=== PATIENT | male | born 1970 | race Hispanic/Latino ===

== ENCOUNTER 2025-02-06 22:00 | Emergency (ER) | payer BC ==
[~2025-02-06] VITALS: Ht 167.6 cm; Wt 85.3 kg
--- NOTE | 2025-02-06 22:22 | NUR ---
PT CARE ASSUMED AT THIS TIME
--- NOTE | 2025-02-06 22:35 | ERN ---
General Chief Complaint: Palpitations Stated Complaint: PALPITATIONS Time Seen by MD: 22:03 History of Present Illness Initial Comments 54-year-old male with a past medical history of hypertension who was out last night until 8:00 a.m. this morning and then tonight when he laid down he felt some palpitations in his heart and comes in as he is concerned about a cardiac problem. He also states that everybody in his family has an anxiety disorder except for him. Currently he is asymptomatic and feels fine. He thinks it is because he is at a hospital and knows that he will be okay. Allergies: Coded Allergies: No Known Allergies (Unverified Allergy, Unknown, 02/06/25) Past Medical History Past Medical History: Hypertension Past Surgical History: None ROS Dictation Review of systems is negative. No chest pain no shortness of breath no changes in defecation or urination no abdominal pain no muscles are aches no headaches no visual changes Physical Exam General Appearance: (+) mild distress Orientation: (+) alert, (+) oriented x 3 Head/Face Trauma: No Eye: bilateral eye normal inspection, bilateral eye PERRL, bilateral eye EOMI Ear, Nose, Throat: (+) hearing grossly normal, (+) normal ENT inspection, (+) moist mucous membraine Neck: (+) normal inspection, (+) supple, (+) full range of motion, (+) no JVD Respiratory: (+) chest non-tender, (+) lungs clear, (+) well ventilated Heart: (+) regular, (+) no gallop Vascular: (+) no edema, (+) normal peripheral pulse Gastrointestinal: (+) soft, (+) bowel sound present MDM The patient right now feels fine. His anxiety is gone. His chest palpitations are gone. An EKG shows a normal sinus rhythm at 56. With an early repolarization pattern and possible bull minimal ST elevations in two and three. I asked the patient if he would like to go home and he says yes. He feels fine now he relates it to possibly being in the hospital and knowing that he will be okay. His blood pressure is slightly elevated I recommend he follow-up with his primary care physician. ED Course Vital Signs Date Time Temp Pulse Resp B/P (MAP) Pulse Ox O2 Delivery O2 Flow Rate FiO2 02/06/25 22:01 98.8 63 18 153/96 100 Room Air DX & DISP Disposition: Discharge Departure Impression: Primary Impression: Palpitations Condition: Stable Additional Instructions: Your heart palpitations have resolved spontaneously our EKG here shows a regular rate and rhythm. Her vital signs do show a slight elevation in her blood pressure. I think it is safe for you to go home and follow-up with her primary care physician. The cause of the transient palpitations I guess were hypovolemia possible electrolyte disorders. You were up all night last night and slightly behind on sleep. You stated you feel comfortable going home and I agree with you. Please follow-up with your primary care physician as your blood pressure is 150. Feel free to return if the palpitations come back and do not resolve. REJI URANO MD Feb 06, 2025 22:35
[2025-02-06 22:42] VITALS: BP 129/90; PULSE 56; RESP 15; TEMP 98.3; O2SAT 100
--- NOTE | 2025-02-07 06:32 | EKG ---
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
== END 2025-02-06 22:46 | disposition home or self-care (01) ==
LOC: EDH 22:00
DX: R00.2 Palpitations (principal); F41.9 Anxiety disorder, unspecified; I10 Essential (primary) hypertension
CPT/HCPCS: 93005; 99284

== ENCOUNTER 2025-02-23 23:32 | Emergency (ER) | payer BC ==
[~2025-02-23] VITALS: Ht 167.6 cm; Wt 88.0 kg
--- NOTE | 2025-02-24 00:31 | ERN ---
ED Note History of Present Illness Stated Complaint: C/O HIGH B/P Chief Complaint: Hypertension Time Seen by MD: 23:37 Dictation: This is a 55-year-old male who presented to the emergency room complaining of increased blood pressure this evening. Apparently when he checked his blood pressure it was 150/90 and he got really concerned and panicky and came to the ER for further evaluation he stated that he can feel when the blood pressure is going up he gets very anxious. No chest pain pressure PND orthopnea no headache blurred vision diplopia. He stated that he has been since last year and has been dating new women in the new relationships are really making him very anxious. Initially he tried to drive around thinking that the anxiety would go down however as he sat in the parking lot he just felt it was better to come and get himself checked out Temperature 98.1 pulse 65 respirations 20 blood pressure 146/94 with a pulse oximetry of 100% on room air Allergies: Coded Allergies: No Known Allergies (Unverified Allergy, Unknown, 02/06/25) Past Medical History Past Medical History: Hypertension Surgical History: None PSYCH History: anxiety Family History: Negative Social History: Negative RN Note Reviewed/Agreed w/PFSH: Yes Review of System Dictation Constitutional: Negative for fever,chills, and weight loss Eyes: Negative for injury, pain,redness, and discharge ENT: Negative for injury,pain or swelling Cardiovascular: Negative for chest pain, palpitations, and edema positive for increasing blood pressure Respiratory: Negative for shortness of breath, cough, and wheezing, Abdomen/GI: Negative for abdominal pain, nausea, vomiting, diarrhea, and constipation Back: Negative for injury and pain : Negative for injury, bleeding and discharge MS/Extremity: Negative for injury and deformity Skin: Negative for rash, and discoloration Neuro: Negative for headache, weakness, numbness, tingling, and seizure Psych: Negative for suicide ideation, homicidal ideation, and hallucinations positive for increasing anxiety symptoms Initial Vital Sign VS Vital Signs Date Time Temp Pulse Resp B/P (MAP) Pulse Ox O2 Delivery O2 Flow Rate FiO2 02/23/25 23:34 98.1 65 20 146/94 100 Room Air 02/23/25 23:45 0 21 Physical Exam Dictation General: awake, alert, NAD appears anxious Head/Face: Normocephalic, atraumatic Eyes: PERRL, EOMI, vision at baseline ENT: oral cavity clear, TMs clear, no signs of infection Neck: Trachea midline, supple, no nuchal rigidity Cardiovascular: RRR, normal S1/S2, No MRGs, no JVD Respiratory: CTAB, no respiratory distress, No rales or wheezes Abdomen: Soft, non-tender, non-distended, normal bowel sounds, no guarding or rebound. Skin: Warm, dry, normal turgor, no rash MS/Extremity: Pulses equal, no cyanosis, neurovascular intact, FROM Neuro: COAx4, GCS 15, strength 5/5, CN 2-12 intact, normal cerebellar exam, normal gait, Psych: Normal behavior, mood, and affect normal Extremities-trace edema without any palpable cords, Homans sign is negative Results (Laboratory/Radiology) Labs Reviewed?: Yes EKG Comment: Lead EKG done on 02/24/2025 at 12:39 a.m. showed a heart rate of 59, MD interval 143, QRS 84, QT/QTC 409/407 Impression normal sinus rhythm with a early repolarization changes but I do not see any acute ST-T elevations or deep ST depressions. EKG rhythm strip shows a normal sinus rhythm with no acute STT wave changes. Interpreted by ER MD Dr Vargas X-RAY Comment: REASON: hyperteensive heart disease ORDERING PHYSICIAN: SHERIN VARGAS MD PROCEDURE: CXR1VW - CHEST 1VW EXAM: CR Chest, 1 view CLINICAL HISTORY: Hypertension. COMPARISON: None provided. FINDINGS: The lungs show no infiltrates or other acute findings. No pleural effusion or pneumothorax. The cardiomediastinal silhouette is within normal limits. No acute osseous abnormality. IMPRESSION: No acute cardiopulmonary process is evident. /[place] DICTATED BY: RAS SAUCEDO Jr., MD DATE: 02/24/25211 ELECTRONICALLY SIGNED BY: RAS SAUCEDO Jr., MD DATE: 02/24/25211 ED Course ED Course Orders Procedure Category Date Status Time Cardiac Panel LAB 02/24/25 Logged 00:29 Cbc With Differential LAB 02/24/25 Logged 00:29 Basic Metabolic Panel LAB 02/24/25 Logged 00:29 Urinalysis Profile LAB 02/24/25 Logged 00:29 Drug Screen Urine LAB 02/24/25 Logged 00:29 12 Lead Ekg Tracing- EKG 02/24/25 Logged Technical 00:29 B-Type Natriuretic LAB 02/24/25 Logged Peptide 00:29 Chest 1vw RAD 02/24/25 Resulted 00:29 Alprazolam 0.25mg PHA 02/24/25 Complete (Xanax 0.25mg) 01:30 Current Medications Medications (Trade) Dose Ordered Sig/Kym Route PRN Reason Start Time Stop Time Status Last Admin Dose Admin Alprazolam (XANax 0.25MG) 0.25 mg ONCE ONCE PO 02/24/25 01:30 02/24/25 01:31 DC 02/24/25 01:40 Vital Signs Date Time Temp Pulse Resp B/P (MAP) Pulse Ox O2 Delivery O2 Flow Rate FiO2 02/24/25 01:42 98.1 58 16 121/68 98 Room Air* 0 21 02/24/25 00:26 98.2 64 17 117/76 99 Room Air* 0 21 02/23/25 23:45 98.1 65 18 138/88 98 Room Air* 0 21 02/23/25 23:34 98.1 65 20 146/94 100 Room Air Medical Decision Making MDM Differential diagnosis: Uncontrolled hypertension, anxiety, hypertensive urgency, hypertensive emergency This is a 55-year-old male who presented to the emergency room complaining of increased blood pressure this evening. Apparently when he checked his blood pressure it was 150/90 and he got really concerned and panicky and came to the ER for further evaluation he stated that he can feel when the blood pressure is going up he gets very anxious. No chest pain pressure PND orthopnea no headache blurred vision diplopia. He stated that he has been since last year and has been dating new women in the new relationships are really making him very anxious. Initially he tried to drive around thinking that the anxiety would go down however as he sat in the parking lot he just felt it was better to come and get himself checked out Temperature 98.1 pulse 65 respirations 20 blood pressure 146/94 with a pulse oximetry of 100% on room air Twelve lead EKG was with a normal limits without any acute changes. Chest x-ray was unremarkable for any acute intra thoracic problems. No cardiomegaly noted. Labs were requested but never drawn. Patient felt significantly improved with a small dose of an anxiolytic and his blood pressure was controlled Rationale: Tests considered and ordered secondary to shared decision making include: Previous outside records reviewed: Old ER visits. Risk of complication and/or morbidity or mortality of patient management: None Medications-Per medication reconciliation Need for hospitalization: Patient does not meet criteria for hospitalization. Need for emergency major/minor surgery: No There are no social concerns with this patient. Prescription drug management Prescriptions will include symptomatic care Patient's prior external medical records from other ER visits were reviewed by me as indicated. Prior testing and results from previous visits were reviewed. Prior tests were taken into account with medical decision making and resource utilization, independent historian/historians were used to obtain complete medical history. I independently interpreted the test that were performed, results were reviewed by me and considered findings on radiology if ordered. Medical management and examination interpretation discussions were had by me with other qualified healthcare professionals as indicated for the patient's care. Problem List Problem List: (1) Hypertension (2) Anxiety DX & DISP Disposition: Discharge Departure Impression: Primary Impression: Hypertension Additional Impression: Anxiety Condition: Stable Additional Instructions: Patient and the caregiver have been informed of all the diagnostic tests and the imaging conducted during the today's visit to the emergency room and has verbalized understanding of the results I have personally reviewed and interpreted all diagnostic exams performed here in the ER today as well as the vital signs documented by the nursing staff. The patient is now being discharged to home and should follow up with the primary care physician or the specialist as directed by the ER staff. Follow-up with primary care provider in 1 to 2 days. Take medications as directed here in the emergency room. Okay to continue home medications unless otherwise discussed during your visit in the emergency room today. Return to your nearest emergency room if symptoms worsen or if there is no improvement. Call 911 if you need immediate assistance. Take Tylenol or Motrin [id number] as needed and if no contraindications are present. Increase oral hydration. A wound culture or urine culture was ordered here in the em ergency room department please follow-up with primary care provider and advise them to get repeat ports from our facility. If you had any Martinez wrap/splints that were applied here, please do not remove them until you see your primary care or specialty. Referrals: SOLANGE MILNER MD (PCP) SHERIN VARGAS MD Feb 24, 2025 00:31
--- NOTE | 2025-02-24 01:13 | HMCIMG ---
EXAM: CR Chest, 1 view CLINICAL HISTORY: Hypertension. COMPARISON: None provided. FINDINGS: The lungs show no infiltrates or other acute findings. No pleural effusion or pneumothorax. The cardiomediastinal silhouette is within normal limits. No acute osseous abnormality. IMPRESSION: No acute cardiopulmonary process is evident. /[place]
[2025-02-24 01:42] VITALS: BP 121/68; PULSE 58; RESP 16; TEMP 98.1; O2SAT 98
--- NOTE | 2025-02-24 04:31 | EKG ---
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
== END 2025-02-24 02:00 | disposition home or self-care (01) ==
LOC: EDH 23:32
DX: I10 Essential (primary) hypertension (principal); F41.9 Anxiety disorder, unspecified
CPT/HCPCS: 71045; 93005; 99284